=== PATIENT | male | born 1940 | race Caucasian/White ===

== ENCOUNTER 2016-12-22 20:53 | Emergency (ER) | payer OTHER ==
[~2016-12-22] VITALS: Ht 182.9 cm; Wt 101.7 kg
[~2016-12-22 20:53] MED LIST: ATENOLOL50 MG PO; COUMADIN5 MG PO; HYDROCHLOROTHIA25 MG PO; LASIX40 MG PO; LISINOPRIL40 MG PO; PRAVASTATIN SOD40 MG PO
[2016-12-22 21:32] LABS: HEMATOCRIT 39.7 % (38.0-50.0); MCH 28.3 PG (29.0-34.0); MCHC 32.2 G/DL (30.0-36.0); MCV 87.6 FL (86-99); MEAN PLAT.VOLUME 10.2 uM^3 (9.0-12.4); RBC DIS.WIDTH-SD 41.2 % (39-53); RED BLOOD COUNT 4.53 M/uL (4.00-5.50); WHITE BLOOD COUNT 5.3 K/uL (4.1-10.2)
[2016-12-22 21:39] LABS: PLATELET COUNT 305 K/uL (156-360)
[2016-12-22 21:45] LABS: CHLORIDE 104 mEq/L (99-109); POTASSIUM 3.4 mEq/L (3.7-5.4); SODIUM 140 mEq/L (136-147)
[2016-12-22 21:47] LABS: GLUCOSE 103 mg/dL (70-99)
[2016-12-22 21:48] LABS: ANION GAP 10 MEQ/L (2-14)
[2016-12-22 21:49] LABS: TOTAL BILIRUBIN 2.5 mg/dL (0.0-1.0)
[2016-12-22 21:50] LABS: ALKALINE PHOSPHATASE 84 IU/L (3-129)
[2016-12-22 21:51] LABS: GFR ESTIMATE (CALCULATED) > 59 mL/min/
[2016-12-22 21:52] LABS: UREA NITROGEN (BUN) 25 mg/dL (9-23)
[2016-12-22] MEDS ORDERED: COUMADIN4 MG PO (23:32)
[2016-12-22] MEDS ORDERED: TAMSULOSIN HCL0.4 MG PO (23:34)
[2016-12-22] MEDS ORDERED: AMLODIPINE BESYL5 MG PO (23:34)
[2016-12-22] MEDS ORDERED: PROSCAR5 MG PO (23:34)
[2016-12-23 00:19] LABS: INTER. NORMALIZED RATIO 2.3; PROTHROMBIN TIME 24.3 (9.2-11.2); PTT 39.7 (25-32)
[2016-12-23 02:30] VITALS: BP 112/78
== END 2016-12-23 02:31 | disposition home or self-care (01) ==
LOC: EME 20:53
DX: L03.115 Cellulitis of right lower limb (principal); I87.2 Venous insufficiency (chronic) (peripheral); E78.5 Hyperlipidemia, unspecified; I10 Essential (primary) hypertension; Z86.73 Personal history of transient ischemic attack (TIA), and cerebral infarction without residual deficits
CPT/HCPCS: 80053; 83605; 83880; 85027; 85610; 85730; 87040; 87205; 93971; 99281; 99285; J1940; J3370

== ENCOUNTER 2017-01-28 13:13 | Emergency (ER) | payer OTHER ==
[~2017-01-28] VITALS: Ht 182.9 cm; Wt 105.0 kg
[~2017-01-28 13:13] MED LIST changes: +AMLODIPINE BESYL5 MG PO; +COUMADIN4 MG PO; +PROSCAR5 MG PO; +TAMSULOSIN HCL0.4 MG PO
[2017-01-28 14:29] LABS: MCH 27.6 PG (29.0-34.0); MCV 86.2 FL (86-99); MEAN PLAT.VOLUME 10.4 uM^3 (9.0-12.4); PLATELET COUNT 209 K/uL (156-360); RBC DIS.WIDTH-CV 13.9 % (11.8-14.6); RBC DIS.WIDTH-SD 43.8 % (39-53); RED BLOOD COUNT 4.06 M/uL (4.00-5.50); WHITE BLOOD COUNT 5.5 K/uL (4.1-10.2)
[2017-01-28 14:39] LABS: CHLORIDE 105 mEq/L (99-109); POTASSIUM 3.8 mEq/L (3.7-5.4); SODIUM 139 mEq/L (136-147)
[2017-01-28 14:41] LABS: GLUCOSE 143 mg/dL (70-99)
[2017-01-28 14:43] LABS: ANION GAP 6 MEQ/L (2-14)
[2017-01-28 14:45] LABS: GFR ESTIMATE (CALCULATED) > 59 mL/min/
[2017-01-28 14:46] LABS: UREA NITROGEN (BUN) 15 mg/dL (9-23)
[2017-01-28] MEDS ORDERED: K-DUR20 MEQ PO (14:50)
[2017-01-28] MEDS ORDERED: TAMSULOSIN HCL0.4 MG PO (14:51)
[2017-01-28 14:54] LABS: PTT 41.8 (25-32)
[2017-01-28 14:55] LABS: INTER. NORMALIZED RATIO 3.9; PROTHROMBIN TIME 41.9 (9.2-11.2)
[2017-01-28] MEDS ORDERED: DOXYCYCLINE HY100 MG PO (17:00)
[2017-01-28 18:06] VITALS: BP 132/93
== END 2017-01-28 18:08 | disposition home or self-care (01) ==
LOC: EME 13:13
PROVIDERS: Emergency Medicine
DX: L03.115 Cellulitis of right lower limb (principal); I87.8 Other specified disorders of veins; E78.5 Hyperlipidemia, unspecified; I10 Essential (primary) hypertension; Z86.73 Personal history of transient ischemic attack (TIA), and cerebral infarction without residual deficits; Z88.0 Allergy status to penicillin
CPT/HCPCS: 80048; 83605; 85027; 85610; 85730; 87040; 93971; 99281; 99284

== ENCOUNTER 2017-03-30 10:42 | Inpatient (IN) | payer OTHER ==
[2017-03-30] VITALS (10 sets, daily range): BP systolic 106–169; BP diastolic 69–107
[~2017-03-30] VITALS: Ht 185.4 cm; Wt 94.6 kg
[~2017-03-30 10:42] MED LIST changes: +DOXYCYCLINE HY100 MG PO; +K-DUR20 MEQ PO
[2017-03-30 11:24] LABS: EOSINOPHIL (%) 0 % (0-5); HEMATOCRIT 33.6 % (38.0-50.0); IMMATURE GRANULOCYTE (%) 0.6 % (0.0-0.7); IMMATURE GRANULOCYTE COUNT 0.1 K/uL; INSTRUMENT ABS NEUTROPHIL CT 8.9 K/uL; LYMPHOCYTE COUNT 0.5 K/uL (1.0-2.8); MCH 26.4 PG (29.0-34.0); MCHC 31.3 G/DL (30.0-36.0); MCV 84.4 FL (86-99); MONOCYTE (%) 7.1 % (3-12); MONOCYTE COUNT 0.7 K/uL (0-0.8); NEUTROPHIL (%) 86.9 % (45-76); NEUTROPHIL COUNT 8.9 K/uL (1.8-6.4); PLATELET COUNT 231 K/uL (156-360); RBC DIS.WIDTH-CV 15.1 % (11.8-14.6); RBC DIS.WIDTH-SD 46.2 % (39-53); RED BLOOD COUNT 3.98 M/uL (4.00-5.50); WHITE BLOOD COUNT 10.2 K/uL (4.1-10.2)
[2017-03-30 11:32] LABS: INTER. NORMALIZED RATIO 4.3; PROTHROMBIN TIME 50.4 SEC (10.2-12.9); PTT 38.7 SEC (25-37)
[2017-03-30 11:34] LABS: CHLORIDE 103 mEq/L (99-109); POTASSIUM 3.6 mEq/L (3.7-5.4); SODIUM 141 mEq/L (136-147)
[2017-03-30 11:36] LABS: GLUCOSE 149 mg/dL (70-99)
[2017-03-30 11:38] LABS: ANION GAP 12 MEQ/L (2-14); TOTAL BILIRUBIN 3.4 mg/dL (0.0-1.0)
[2017-03-30 11:40] LABS: ALKALINE PHOSPHATASE 81 IU/L (3-129); GFR ESTIMATE (CALCULATED) > 59 mL/min/
[2017-03-30 11:41] LABS: UREA NITROGEN (BUN) 14 mg/dL (9-23)
[2017-03-30 11:45] LABS: TROP-I INTERPRETATION NEGATIVE; TROPONIN-I 0.04 ng/mL (0.0-0.30)
[2017-03-30 13:27] LABS: BASE EXCESS 5.5 mEq/L (-3 to +3); BICARBONATE 28.2 mEq/L (22-26); COMMENTS - BLOOD GASES A+C+; DEVICE VENT; FI02 100 %; MECHANICAL RATE 20 resp/min; METHEMOGLOBIN 1.2 % (0-1.5); MODE AC; PCO2 33 mm Hg (35-45); PEEP 5 CM/H20; PO2 418 mm Hg (80-100); SITE RR; TIDAL VOLUME 550 ML; TOTAL RESP RATE 20 resp/min; pH 7.54 (7.35-7.45)
[2017-03-30] MEDS ORDERED: TRAMADOL HCL50 MG PO (14:38)
[2017-03-30 22:02] LABS: METH RESISTANT S AUREUS PCR NEGATIVE (NEGATIVE)
[2017-03-30 22:04] LABS: PROBE CHECK PASS; SPECIMEN PROCESSING CONTROL PASS
[2017-03-30 22:29] LABS: PTT 25.7 SEC (25-37)
[2017-03-30 22:30] LABS: CHLORIDE 104 mEq/L (99-109); POTASSIUM 3.4 mEq/L (3.7-5.4); SODIUM 141 mEq/L (136-147)
[2017-03-30 22:31] LABS: MAGNESIUM 2.1 mg/dL (1.3-2.7)
[2017-03-30 22:33] LABS: GLUCOSE 147 mg/dL (70-99)
[2017-03-30 22:34] LABS: ANION GAP 9 MEQ/L (2-14); TOTAL BILIRUBIN 3.8 mg/dL (0.0-1.0)
[2017-03-30 22:36] LABS: ALKALINE PHOSPHATASE 69 IU/L (3-129); GFR ESTIMATE (CALCULATED) > 59 mL/min/
[2017-03-30 22:37] LABS: UREA NITROGEN (BUN) 13 mg/dL (9-23)
[2017-03-30 22:45] LABS: INTER. NORMALIZED RATIO 1.3; PROTHROMBIN TIME 13.9 SEC (10.2-12.9)
[2017-03-31] VITALS (12 sets, daily range): BP systolic 116–151; BP diastolic 75–96
[2017-03-31 05:25] LABS: HEMATOCRIT 28.5 % (38.0-50.0); MCHC 31.9 G/DL (30.0-36.0); MCV 84.6 FL (86-99); MEAN PLAT.VOLUME 11.5 uM^3 (9.0-12.4); PLATELET COUNT 192 K/uL (156-360); RBC DIS.WIDTH-CV 15.4 % (11.8-14.6); RBC DIS.WIDTH-SD 46.9 % (39-53); RED BLOOD COUNT 3.37 M/uL (4.00-5.50); WHITE BLOOD COUNT 7.4 K/uL (4.1-10.2)
[2017-03-31 05:44] LABS: ALKALINE PHOSPHATASE 59 IU/L (3-129); ANION GAP 9 MEQ/L (2-14); CHLORIDE 108 MEQ/L (99-109); GFR ESTIMATE (CALCULATED) > 59 mL/min/; GLUCOSE 135 mg/dL (70-99); POTASSIUM 3.6 MEQ/L (3.7-5.4); SAMPLE HEMOLYSIS CHECK 0; SAMPLE ICTERIC CHECK 1; SAMPLE LIPEMIA CHECK 0; SODIUM 146 MEQ/L (136-147); UREA NITROGEN (BUN) 16 mg/dL (9-23)
[2017-03-31 06:26] LABS: INTER. NORMALIZED RATIO 1.2; PROTHROMBIN TIME 13.2 SEC (10.2-12.9)
[2017-03-31 06:28] LABS: PTT 27.4 SEC (25-37)
[2017-04-01 06:46] VITALS: BP 00/00
== END 2017-04-01 15:40 | DRG 82 ==
LOC: EME 10:42 → 5EAST 18:08 → 4WEST 18:08 → EDOF 18:08 → ENRESERV 18:10 → 4WEST 20:12 → CANRESERV 03-31 13:39 → ENRESERV 03-31 13:39 → 5EAST 03-31 17:19
PROVIDERS: Emergency Medicine; Internal Medicine Critical Care Medicine
PROC: 5A1935Z Respiratory Ventilation, Less than 24 Consecutive Hours (ICD-10-PCS; principal; 2017-03-30)
PROC: 0BH17EZ Insertion of Endotracheal Airway into Trachea, Via Natural or Artificial Opening (ICD-10-PCS; 2017-03-30)
PROC: 30233K1 Transfusion of Nonautologous Frozen Plasma into Peripheral Vein, Percutaneous Approach (ICD-10-PCS; 2017-03-30)
DX: J96.90 Respiratory failure, unspecified, unspecified whether with hypoxia or hypercapnia; L03.90 Cellulitis, unspecified; L97.911 Non-pressure chronic ulcer of unspecified part of right lower leg limited to breakdown of skin; Z51.5 Encounter for palliative care; S00.212A Abrasion of left eyelid and periocular area, initial encounter; E78.5 Hyperlipidemia, unspecified; I10 Essential (primary) hypertension; Z66 Do not resuscitate; W19.XXXA Unspecified fall, initial encounter; I48.2 Chronic atrial fibrillation; R79.1 Abnormal coagulation profile; T45.515A Adverse effect of anticoagulants, initial encounter; I89.0 Lymphedema, not elsewhere classified; I87.8 Other specified disorders of veins; I87.2 Venous insufficiency (chronic) (peripheral); R40.20 Unspecified coma; Z79.01 Long term (current) use of anticoagulants; Z88.0 Allergy status to penicillin; Z85.038 Personal history of other malignant neoplasm of large intestine; Z90.49 Acquired absence of other specified parts of digestive tract; Z86.73 Personal history of transient ischemic attack (TIA), and cerebral infarction without residual deficits; Z85.828 Personal history of other malignant neoplasm of skin; Y92.009 Unspecified place in unspecified non-institutional (private) residence as the place of occurrence of the external cause
CPT/HCPCS: 36600; 70450; 71010; 80053; 82803; 83735; 84100; 84484; 85025; 85025 91; 85027; 85610; 85730; 86850; 86900; 86901; 87070; 87205; 87641; 93005; 94002; 99281; 99285; C9132; J0330; J1100; J2060; J2270; J2704; J3430; J7040; J7050; P9017; S0028